=== PATIENT | female | born 1985 | race Asian ===

== ENCOUNTER 2018-01-14 14:06 | Emergency (ER) | payer MEDICAID ==
[~2018-01-14] VITALS: Ht 167.6 cm; Wt 103.0 kg
[2018-01-14 14:23] VITALS: Ht 167.6 cm; Wt 103.0 kg
[2018-01-14 15:13] LABS: CALCIUM 9.3 mg/dL (8.5-10.1); CHLORIDE SERUM 102 mmol/L (98-107); CREATININE SERUM 0.6 mg/dL (0.6-1.0); GFR1 > 60 mL/min; GLUCOSE SERUM 118 mg/dL (74-106); POTASSIUM SERUM 3.8 mmol/L (3.5-5.1); SODIUM SERUM 137 mmol/L (136-145)
[2018-01-14 16:30] VITALS: BP 106/75
== END 2018-01-14 16:30 | disposition home or self-care (01) ==
LOC: ED 14:06
PROVIDERS: Emergency Medicine
DX: O21.0 Mild hyperemesis gravidarum (principal); O24.311 Unspecified pre-existing diabetes mellitus in pregnancy, first trimester; E11.9 Type 2 diabetes mellitus without complications; Z3A.09 9 weeks gestation of pregnancy
CPT/HCPCS: J2405; J7030

== ENCOUNTER 2018-03-29 13:10 | Emergency (ER) | payer OTHER ==
[~2018-03-29] VITALS: Ht 167.6 cm; Wt 102.1 kg
[2018-03-29 13:23] VITALS: Ht 167.6 cm; Wt 102.1 kg
[2018-03-29 15:50] VITALS: BP 107/74
== END 2018-03-29 15:50 | disposition home or self-care (01) ==
LOC: ED 13:10
DX: O26.892 Other specified pregnancy related conditions, second trimester (principal); J03.90 Acute tonsillitis, unspecified; O24.912 Unspecified diabetes mellitus in pregnancy, second trimester; E11.9 Type 2 diabetes mellitus without complications; Z3A.20 20 weeks gestation of pregnancy
CPT/HCPCS: J0696